=== PATIENT | female | born 1995 | race Two or more races ===

== ENCOUNTER 2019-07-24 21:45 | Emergency (ER) | payer OTHER ==
[~2019-07-24] VITALS: Ht 160 cm; Wt 56.7 kg
[2019-07-24 22:28] VITALS: BP 132/74
[2019-07-24] MEDS ORDERED: diphenhdrAMINE HCL 25 MG CAP PO ONE (22:30)
== END 2019-07-24 23:47 | disposition left against medical advice (07) ==
LOC: ER 21:48
DX: R21 Rash and other nonspecific skin eruption (principal); Z53.21 Procedure and treatment not carried out due to patient leaving prior to being seen by health care provider

== ENCOUNTER 2023-09-10 12:47 | Emergency (ER) | payer MEDICAID, OTHER ==
[~2023-09-10] VITALS: Ht 160 cm; Wt 59.0 kg
[2023-09-10 14:47] VITALS: BP 101/68; PULSE 54; RESP 18; TEMP 98.7; O2SAT 96
[2023-09-10] MEDS ORDERED: NAPR-746 PO (14:59)
[2023-09-10] MEDS ORDERED: AMOX875T3 PO (14:59)
== END 2023-09-10 15:00 | disposition home or self-care (01) ==
LOC: ER 12:47
DX: H61.21 Impacted cerumen, right ear (principal); H66.91 Otitis media, unspecified, right ear
CPT/HCPCS: 69209

== ENCOUNTER 2023-09-17 16:09 | Emergency (ER) | payer MEDICAID ==
[~2023-09-17] VITALS: Ht 160 cm; Wt 56.0 kg
[~2023-09-17 16:09] MED LIST: AMOX875T3 PO; NAPR-746 PO
[2023-09-17 17:28] LABS: Basophils # (auto) 0 10 ^3/uL (0-0.2); Basophils % (auto) 0.5 % (0.0-2.0); Eosinophils # (auto) 0.1 10 ^3/uL (0-0.8); Eosinophils % (auto) 0.9 % (0.0-7.0); Hematocrit 42.9 % (36.0-46.0); Hemoglobin 14.3 g/dL (12.2-16.2); Lymphocytes # (auto) 1.9 10 ^3/uL (0.4-5.4); Lymphocytes % (auto) 25.8 % (10.0-50.0); Mean Corpuscular Hemoglobin 30.1 pg (28.0-32.0); Mean Corpuscular Hgb Conc. 33.4 g/dL (32.0-36.0); Mean Corpuscular Volume 90.1 fL (80.0-100.0); Monocytes # (auto) 0.7 10 ^3/uL (0-1.3); Monocytes % (auto) 8.7 % (0.0-12.0); Neutrophils # (auto) 4.8 10 ^3/uL (1.6-8.6); Neutrophils % (auto) 64.1 % (37.0-80.0); Nucleated Red Blood Cells % 0.2 %; Red Blood Cells 4.77 10^6/uL (4.0-5.20); Red Cell Distribution Width 12.8 % (11.8-14.3); White Blood Cell 7.5 10^3/uL (4.4-10.8)
[2023-09-17 17:45] LABS: Anion Gap 4 (5-15); Carbon Dioxide 26 mmol/L (20-30); Chloride 107 mmol/L (98-107); Potassium 3.6 mmol/L (3.5-5.1); Sodium 137 mmol/L (136-145)
[2023-09-17 17:51] LABS: BUN/Creatinine Ratio 9.2 (10.0-20.0); Blood Urea Nitrogen 7 mg/dL (9-23); Glucose 101 mg/dL (74-106)
[2023-09-17 19:10] VITALS: BP 115/62; PULSE 86; RESP 18; TEMP 98.8; O2SAT 96
== END 2023-09-17 19:13 | disposition home or self-care (01) ==
LOC: ER 16:09
DX: R42 Dizziness and giddiness (principal); R10.2 Pelvic and perineal pain
CPT/HCPCS: 36415; 80048; 82962; 84702; 85025